=== PATIENT | female | born 1955 | race Caucasian/White ===

== ENCOUNTER 2022-10-25 07:18 | Day surgery (SDC) | payer MEDICARE, BC ==
[~2022-10-25] VITALS: Ht 160 cm; Wt 61.2 kg
[~2022-10-25 07:18] MED LIST: HAIR SKIN NAIL1 EACH PO; VITAMIN B122500 MC1 PO; VITAMIN C 500500 M1 PO; VITAMIN D21250 MCG PO
[2022-10-25] MEDS ORDERED: CALCIUM500 MG PO (07:41)
[2022-10-25] MEDS ORDERED: MAGNESIUM100 MG PO (07:42)
--- NOTE | 2022-10-25 08:50 | NUR ---
10/25/22 0828 Maddy Michel 0825-PATIENT ARRIVED TO PACU ON 2L NC RR EVEN. PATIENT AWAKE DROWSY DENIES PAIN OR NAUSEA. ABDOMEN SOFT. IVF INFUSING. PATIENT DOZES BACK TO SLEEP.
--- NOTE | 2022-10-25 09:34 | OR ---
[facility] [address], [place] [address] Signed DATE OF OPERATION: 10/25/2022 SURGEON: Sun Mitchell MD PREOPERATIVE DIAGNOSES: 1. Guaiac-positive stool while on aspirin. 2. Blood in stool. 3. Diverticulosis. 4. Redundant colon. POSTOPERATIVE DIAGNOSES: 1. Moderate pandiverticulosis. 2. Narrow, tortuous sigmoid colon. 3. Redundant left colon. 4. Minimal internal hemorrhoids. PROCEDURE: Colonoscopy without biopsy. ESTIMATED BLOOD LOSS: None. INDICATIONS: Luciana is a 67-year-old female, asked to see me for followup colonoscopy. She underwent a negative screening colonoscopy in 2005 at the age of 51 [address] Cui. She was told to follow up in [address] Cui repeated the endoscopy in 2018 at the age of 63. She had moderate diverticulosis and a redundant colon. She had done well with Versed and Demerol. He asked her to follow up in 10 years for repeat colonoscopy. Dr. Cui is now retired. Luciana noticed some blood associated with her bowel movements while on aspirin during the holidays. She had been to her primary care provider. She had guaiac positive stool. Her primary care provider asked her to come and repeat the colonoscopy. She has no family history of colon cancer or polyps. No specific lower GI complaints other than the guaiac-positive stool. In the office I gave Luciana a pamphlet on colonoscopy. She recalls the test well. There is risk to gas, bloating, crampy abdominal pain, bleeding, perforation requiring surgery, and missed diagnosis. We also reviewed the need for IV conscious sedation. She had expressed understanding and wished to proceed. PROCEDURE IN DETAIL: Luciana was taken into our endoscopy suite and placed in the left lateral decubitus Electronically Signed By: SUN MITCHELL MD 10/25/22 0934 PATIENT NAME: LUCIANA CAR OPERATIVE REPORT DATE OF : 57 REPORT #: [id number] PHYSICIAN: SUN MITCHELL MD PCP: FRANCIS JASON MD REPORT IS CONFIDENTIAL AND NOT TO BE RELEASED WITHOUT AUTHORIZATION [facility] [address], [place] [address] Signed position. She was given a total of 4.5 mg of Versed and 100 mcg of fentanyl to cover the case. A digital rectal exam was performed. She had good sphincter tone. There were no external hemorrhoids. There were no masses. The adult colonoscope was introduced and advanced under direct visualization of camera. Indeed, she had a narrow tortuous sigmoid colon and redundant left colon. We came around hepatic flexure and she has a fairly short right colon. It took some extra sedation and abdominal compression in order to advance the scope. Luciana had an excellent prep. We could easily see the appendiceal orifice and ileocecal valve. We did suction some liquid in the base of the cecum and so she did have some bruising. The scope was then slowly withdrawn. She has moderate pandiverticulosis. They are moderate in size, moderate in number, and scattered about. Again, the right colon is fairly short and the left colon is long and redundant. We came back to her narrow tortuous sigmoid colon and then down into the rectum. The rectum was unremarkable. Upon retroflexion of scope she has very minimal internal hemorrhoid tissue. She told me she did notice a little blood from the bowel prep. After this, the gas was suctioned out. The colonoscope removed. Overall, Luciana tolerated the procedure well. RECOMMENDATIONS: I will see Luciana in 10 years for repeat colonoscopy. If she has recall of this procedure, she might consider monitored anesthesia care in the future as she is a little difficult to pass the scope. She might discuss the use of aspirin with her primary care provider. Sun Mitchell MD ALB/MODL /[id number] cc: MD Dr. Johnson Najera Copies: SUN MITCHELL MD Electronically Signed By: SUN MITCHELL MD 10/25/22 0934 PATIENT NAME: LUCIANA CAR OPERATIVE REPORT DATE OF : 57 REPORT #: [id number] PHYSICIAN: SUN MITCHELL MD PCP: FRANCIS JASON MD REPORT IS CONFIDENTIAL AND NOT TO BE RELEASED WITHOUT AUTHORIZATION [address] [place] [address] Signed ~ Electronically Signed By: SUN MITCHELL MD 10/25/22 0934 PATIENT NAME: LUCIANA CAR JUVE OPERATIVE REPORT DATE OF : 57 REPORT #: [id number] PHYSICIAN: SUN MITCHELL MD PCP: FRANCIS JASON MD REPORT IS CONFIDENTIAL AND NOT TO BE RELEASED WITHOUT AUTHORIZATION
== END 2022-10-25 09:35 | disposition home or self-care (01) ==
LOC: OPS 07:18 → DS 07:18 → OPS 09:00
PROVIDERS: ATTEND Colon & Rectal Surgery
PROC: 0DJD8ZZ Inspection of Lower Intestinal Tract, Via Natural or Artificial Opening Endoscopic (ICD-10-PCS; principal; 2022-10-25 09:00)
DX: K57.31 Diverticulosis of large intestine without perforation or abscess with bleeding (principal); K63.89 Other specified diseases of intestine; K64.8 Other hemorrhoids; R19.5 Other fecal abnormalities
CPT/HCPCS: 99153; G0500; J2250; J3010; J7121